=== PATIENT | female | born 1960 | race Caucasian/White ===

== ENCOUNTER → 2020-10-10 11:12 | Outpatient (CLI) | payer OTHER, SELFPAY ==
--- NOTE | 2020-10-10 | DI.RAD.S_ITS ---
PROCEDURE: XR KNEE RT 3V INDICATIONS: RIGHT KNEE PAIN TECHNIQUE: 3 views of the knee were acquired. COMPARISON: None. FINDINGS: Bones: No fractures or dislocations. No suspicious bony lesions. Soft tissues: No joint effusion. No suspicious soft tissue calcifications. IMPRESSION: Normal for age, source of current knee pain symptoms is not seen. Dictated by: Eddie Anderson M.D. on 10/10/2020 at 14:00 Approved by: Eddie Anderson M.D. on 10/10/2020 at 14:01
== END ==
PROVIDERS: PCP Family Medicine; Referring Provider Family Medicine; Visit Provider Family Medicine
DX: M25.561 Pain in right knee (principal)
CPT/HCPCS: 73562

== ENCOUNTER → 2022-03-16 12:17 | Outpatient (ROUT) | payer OTHER, SELFPAY ==
[2022-03-16 12:29] LABS: Add Manual Diff / Slide Review NO; Basophils Absolute Auto 0 /uL (0-100); Basophils Percent Auto 0.4 % (0-2); Eosinophils Absolute Auto 100 /uL (0-450); Hematocrit 40.3 % (36-46); Hemoglobin 13.7 g/dL (12.0-16.0); Lymphocytes Absolute Auto 1000 /uL (1100-4500); Lymphocytes Percent Auto 24.1 % (25-40); Mean Corpuscular Hemoglobin 29.5 PG (26-34); Mean Corpuscular Volume 86.6 fL (80-100); Monocytes Absolute Auto 300 /uL (0-900); Monocytes Percent Auto 6.7 % (3-14); Neutrophils Absolute Auto 2800 /uL (1500-7000); Neutrophils Percent Auto 66.8 % (50-75); Platelet Count 254 X10^3/uL (150-400); Red Blood Cell Count 4.65 X10^6/uL (4.0-5.2); White Blood Cell Count 4.1 X10^3/uL (4.5-11.0)
[2022-03-16 12:41] LABS: Alanine Aminotransferase 14 IU/L (<35); Albumin 4.4 g/dL (3.5-5.0); Albumin Globulin Ratio 1.6 (1.0-2.8); Alkaline Phosphatase 37 U/L (38-126); Aspartate Aminotransferase 23 IU/L (14-36); BUN Creatinine Ratio 17.6 (6-22); Bilirubin Total 0.9 mg/dL (0.2-1.3); Blood Urea Nitrogen 12 mg/dL (7-17); Calcium 10.2 mg/dL (8.4-10.2); Carbon Dioxide 23 mmol/L (22-32); Chloride 105 mmol/L (98-107); Estimated Glomerular Filt Rate > 60 mL/min (>60); Globulin 2.8 g/dL (1.7-4.1); Glucose 110 mg/dL (80-110); HEMOLYSIS 25 (0-50); Potassium 4.3 mmol/L (3.4-5.1); Sodium 136 mmol/L (137-145); Total Protein 7.2 g/dL (6.3-8.2)
[2022-03-16 12:45] LABS: High Sensitivity CRP - Cardiac 0.7 mg/L (1.0-3.0)
[2022-03-16 12:53] LABS: Troponin I < 0.012 ng/mL (0.01-0.034)
[2022-03-16 13:12] LABS: TSH w/ Reflex to FT4 2.54 uIU/mL (0.47-4.68)
== END ==
PROVIDERS: PCP Family Medicine; Visit Provider Family Medicine
DX: R07.9 Chest pain, unspecified (principal)
CPT/HCPCS: 80053; 84443; 84484; 85025; 86140

== ENCOUNTER → 2023-06-10 11:53 | Outpatient (CLI) | payer OTHER, SELFPAY ==
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
== END ==
PROVIDERS: PCP Family Medicine; Referring Provider Registered Nurse; Visit Provider Registered Nurse
DX: S13.4XXA Sprain of ligaments of cervical spine, initial encounter (principal); M17.11 Unilateral primary osteoarthritis, right knee; V89.2XXA Person injured in unspecified motor-vehicle accident, traffic, initial encounter
CPT/HCPCS: 72040; 73562

== ENCOUNTER → 2024-04-28 08:01 | Outpatient (CLI) | payer OTHER, SELFPAY ==
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
[2024-04-28 09:31] LABS: Alanine Aminotransferase 18 IU/L (<35); Albumin 4.4 g/dL (3.5-5.0); Albumin Globulin Ratio 1.4 (1.0-2.8); Alkaline Phosphatase 36 U/L (38-126); Aspartate Aminotransferase 25 IU/L (14-36); BUN Creatinine Ratio 18.3 (6-22); Bilirubin Total 0.7 mg/dL (0.2-1.3); Blood Urea Nitrogen 15 mg/dL (7-17); Calcium 10.1 mg/dL (8.4-10.2); Carbon Dioxide 30 mmol/L (22-32); Chloride 105 mmol/L (98-107); Cholesterol 245 mg/dL (140-199); Estimated Glomerular Filt Rate > 60 mL/min (>60); Globulin 3.1 g/dL (1.7-4.1); Glucose 98 mg/dL (80-110); HDL Cholesterol 95 mg/dL (40-60); HEMOLYSIS < 15 (0-50); LDL Cholesterol Calculated 130 mg/dL (<100); Potassium 4.6 mmol/L (3.4-5.1); Sodium 138 mmol/L (137-145); Total Protein 7.5 g/dL (6.3-8.2); Triglycerides 100 mg/dL (35-150)
[2024-04-28 09:59] LABS: Thyroid Stimulating Hormone 2.78 uIU/mL (0.47-4.68)
[2024-04-29 06:48] LABS: C-Reactive Protein Quant < 0.5 mg/dL (<1.0); Uric Acid 4.8 mg/dL (2.5-6.2)
== END ==
PROVIDERS: PCP Family Medicine; Referring Provider Family Medicine; Visit Provider Family Medicine
DX: E03.9 Hypothyroidism, unspecified (principal); E78.2 Mixed hyperlipidemia; E83.52 Hypercalcemia; I10 Essential (primary) hypertension
CPT/HCPCS: 36415; 73130; 80053; 80061; 84443; 84550; 86140

== ENCOUNTER 2024-06-08 13:27 | Day surgery (SDC) | payer OTHER, SELFPAY ==
[2024-06-02 08:07] VITALS: BMI 23.8
--- NOTE | 2024-06-08 | PATH_ITS ---
[facility] Accession Number: [id number] No. of containers..05 Tissue . 01 Material submitted: . PART A: ectocervix - SIX - ECTOCERVICAL PART B: ectocervix - NINE - ECTOCERVICAL PART C: ectocervix - NOON - ECTOCERVICAL PART D: ectocervix - THREE - ECTOCERVICAL PART E: UTERINE - UTERINE CONTENTS . 01 Diagnosis: A. 6-ECTOCERVICAL: Atypical metaplastic squamous mucosa, favor a reactive etiology. No intact transformation zone is present in this biopsy. . B. 9-ECTOCERVICAL: Atypical metaplastic squamous mucosa, favor a reactive etiology. The transformation zone is present in this biopsy. . C. NOON (12 O'CLOCK)-ECTOCERVICAL: Detached portions of atypical metaplasia squamous mucosa, favor a reactive etiology. Scant, detached glandular elements; negative for significant atypia. No intact transformation zone is present in this biopsy. . D. 3-ECTOCERVICAL: Minute focus of cytologic atypia suggestive of, but not diagnostic of, low-grade squamous intraepithelial lesion / LUIS M-1. The transformation zone is present in this biopsy. . E. UTERINE CONTENTS: Portions of endometrial tissue with features of cystic atrophy; negative for endometrioid intraepithelial neoplasia or malignancy. Some endometrial fragments demonstrate prominent vessels, suggestive of polyp, if clinical and imaging studies are concordant. MRV 06/19/2024 1024 Local . 01 Electronically signed: . Juliane Garcia MD, Pathologist NPI- [id number] . 01 Gross description: . A. Received in formalin with two patient identifiers and ectocervical biopsy 6, are multiple carney soft tissue fragments aggregating to 0.4 x 0.2 x 0.1 cm. Filtered and submitted entirely in A1. B. Received in formalin with two patient identifiers and ectocervical biopsy 9, are multiple carney soft tissue fragments aggregating to 0.8 x 0.3 x 0.1 cm. Filtered and submitted entirely in B1. C. Received in formalin with two patient identifiers and ectocervical BX noon, are multiple carney soft tissue fragments admixed with mucoid material aggregating to 0.4 x 0.3 x 0.1 cm. Filtered and submitted entirely in C1. D. Received in formalin with two patient identifiers and ectocervical BX 3, are multiple carney soft tissue fragments admixed with mucohemorrhagic material aggregating to 0.5 x 0.3 x 0.1 cm. Filtered and submitted entirely in D1. E. Received in formalin with no patient identifiers (authorization form received), are multiple carney soft tissue fragments admixed with mucohemorrhagic material aggregating to 2.5 x 1.3 x 0.3 cm. Filtered and submitted entirely in E1. ([id number]) /[facility] 06/16/2024 [facility]5 Local . 01 Microscopic: . An immunohistochemical stain for p16 is performed to evaluate for block reactivity. The control stained with appropriate reactivity. . RESULTS: Blocks A1, B1, and D1 P16: Equivocal for block immunostaining. Ki67: No significant increase identified. . The equivocal nature of p16 staining in this biopsy is indeterminate for the presence of high risk HPV DNA. . Block C1 P16: Negative for block immunostaining. . The absence of p16 block immunostaining mitigates against the presence of high risk HPV DNA in this biopsy. . * This test was developed and its performance characteristics determined by [facility]. It has not been cleared or approved by the U.[place]. Food and Drug Administration. The FDA has determined that such clearance or approval is not necessary. This test is used for clinical purposes. It should not be regarded as investigational or for research. . 01 Pathologist provided ICD-10: R87.619, N95.0 . 01 CPT . 586786, 628947, 311378, 645354, 210162, G01153 Specimen Comment: A courtesy copy of this report has been sent to [facility] Performed at: [address] [address], [place], [place] [id number] MD Nba Swartz MD Phone: [phone]
--- NOTE | 2024-06-08 13:34 | PM.PREOP ---
Pre-operative Note Interval Note History & Physical reviewed/Exam performed by Physician: Yes Changes to H&P: No H&P completed within 30 days and has changed as indicated here:: 05/25/24 ASA Class (for procedural sedation): II
[2024-06-08 13:50] VITALS: BP 127/77; PULSE 66; RESP 16; TEMP 36.3; O2SAT 97
[2024-06-08 13:51] VITALS: BMI 23.6
[2024-06-08] MEDS: LACTATED RINGERS 1,000 ML 42 ML IV (14:01)
--- NOTE | 2024-06-08 14:37 | SUR.OPER ---
Lithotomy on padded OR bed, head on pillow, arms secured on padded arm boards at <90 degrees abduction. Legs secured in padded yellow fins stirrups.
[2024-06-08] MEDS: SILVER NITRATE STICK 4 EACH TOP (14:58)
--- NOTE | 2024-06-08 15:02 | PM.OP.1 ---
Operative Date/Time/Diagnoses Date of procedure: 06/08/24 Time of procedure: 15:03 Pre-op diagnosis: postmenopausal bleeding with MAX pap Post-op diagnosis: same Procedure & Clinicians Procedure: hysteroscopy with dilation and curettage, ectocervical biopsies Same procedure as scheduled: Yes Indications: postmenopausal bleeding, recent MAX pap Surgeon: Michelle Duval Click Yes if Unassisted: Yes Anesthesia Type: General Operative Notes Findings: normal external female genitalia, perineum and anus noted dovetail consistent with prior OASIS cervix visually wnl, quadrant ectocervical biopsies obtained bilateral ostia visualized, asherman's apperance of endometrium with fundal polyp Closure Type: not applicable Specimen(s): other (1) intrauterine contents; 2) ectocervical biopsies (12/3/6/9 o'clock)) Estimated Blood Loss (mL): 5 Procedure in detail: Pt was taken to the operating room, transferred to OR table and anesthesia was induced with placement of LMA.? Pt had her legs placed in Arthur stirrups and an exam under anesthesia was performed. The patient was prepped and draped in a sterile fashion.? A time out was performed. ? A sterile speculum was inserted into the vagina.? The cervix was visualized and grasped anteriorly using a single tooth tenaculum.? The uterus sounded to 9 cm and the cervical os was serially dilated using Davis dilators up to 17f to allow for passage of the hysteroscope.? The 5mm 0 degree hysteroscope was then inserted into the uterus with findings as noted.? The small Myosure device was introduced and the endometrium including visualized pathology was fractionally resected under direct visualization.?The hysteroscope was removed and the uterus was sharply curetted until a gritty texture was noted throughout.? The tenaculum was removed and hemostasis was noted at insertion sites.? Ectocervical biopsies were taken from 12, 3, 6 and 9 o'clock position using Tischler biopsy forceps. Silver nitrate was applied to biopsy sites with subsequently noted hemostasis. The speculum was removed and hemostasis was again noted to be excellent.? The patient then had her legs taken out of stirrups.? The patient tolerated the procedure well and without difficulty.? The patient was awakened from anesthesia and taken to PACU in stable condition. Complications: none Post-operative Condition: stable Disposition: PACU Plan for aftercare: dc to home, routine postop f/u in office 1-2 wks
[2024-06-08 15:10] VITALS: BP 130/88; PULSE 62; RESP 20; TEMP 36.2; O2SAT 100
[2024-06-08 15:15] VITALS: BP 140/89; PULSE 59; RESP 17; O2SAT 98
[2024-06-08 15:20] VITALS: BP 147/89; PULSE 58; RESP 18; O2SAT 99
[2024-06-08 15:26] VITALS: BP 145/82; PULSE 53; RESP 12; O2SAT 99
[2024-06-08 15:31] VITALS: BP 153/82; PULSE 51; RESP 12; TEMP 36.4; O2SAT 99
== END 2024-06-08 15:46 | disposition home or self-care (01) ==
PROVIDERS: PCP Family Medicine; Referring Provider Obstetrics & Gynecology; Visit Provider Obstetrics & Gynecology
PROC: 0UDB8ZZ Extraction of Endometrium, Via Natural or Artificial Opening Endoscopic (ICD-10-PCS; CPT 58558; principal; 2024-06-08 15:00)
DX: R87.619 Unspecified abnormal cytological findings in specimens from cervix uteri (principal); N95.0 Postmenopausal bleeding; N84.0 Polyp of corpus uteri
CPT/HCPCS: 58558; J0171; J1100; J2405; J2704; J3010

== ENCOUNTER → 2024-07-14 11:14 | Outpatient (CLI) | payer OTHER, SELFPAY ==
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
== END ==
PROVIDERS: PCP Family Medicine; Referring Provider Family Medicine; Visit Provider Family Medicine
DX: K59.00 Constipation, unspecified (principal)
CPT/HCPCS: 74021

== ENCOUNTER → 2025-02-23 08:50 | Outpatient (CLI) | payer OTHER, SELFPAY ==
--- NOTE | 2025-02-23 08:53 | DI.RAD.S_ITS ---
PROCEDURE: XR KNEE LT 3V INDICATIONS: LT KNEE JOINT CYST TECHNIQUE: 3 views of the knee were acquired. COMPARISON: [facility], CR, XR KNEE RT 3V, 06/10/2023, 12:13. FINDINGS: Bones: There are no osseous abnormalities. Joints: Moderate patellofemoral and medial tibial femoral degenerative change appreciated. Faint chondrocalcinosis seen in the menisci. Small effusion noted Soft tissues: Normal IMPRESSION: Moderate degeneration. Chondrocalcinosis of menisci Dictated by: Chuck Chacko M.D. on 02/24/2025 at 9:54 Approved by: Chuck Chacko M.D. on 02/24/2025 at 9:57
== END ==
PROVIDERS: PCP Family Medicine; Referring Provider Family Medicine; Visit Provider Family Medicine
DX: M25.862 Other specified joint disorders, left knee (principal); M11.262 Other chondrocalcinosis, left knee
CPT/HCPCS: 73562